=== PATIENT | female | born 1960 | race Caucasian/White ===

== ENCOUNTER 2016-06-20 04:39 | Inpatient (IN) | payer SELFPAY ==
[~2016-06-20] VITALS: Ht 160 cm; Wt 63.5 kg
[2016-06-20] VITALS (28 sets, daily range): BP systolic 110–195; BP diastolic 70–100; PULSE 69–101; RESP 17–20; TEMP 96.5–98.3; O2SAT 92–99
[~2016-06-20 04:39] MED LIST: BENZ100 PO; LOVA10TA PO; PRED20 PO; ZITH250T PO
[2016-06-20] MEDS ORDERED: SODIUM CHLOR 0.9% 1000 ML INJ 1,000 ML IV ONE (05:06)
--- NOTE | 2016-06-20 05:13 | PD ---
HPI Chief Complaint: Numbness/Tingling Time Seen by Provider: 04:59 Travel History International Travel<30 days: No Contact w/Intl Traveler<30days: No Traveled to known affect area: No History of Present Illness HPI 56-year-old female presents to the emergency department by private vehicle for evaluation of new onset numbness to the left upper lip left upper extremity and left leg. Patient states that approximately one hour prior to arrival to the emergency department patient started noticing numbness of the left face specifically in the lip left upper extremity and left leg. Patient states that this is persistent and no prior history of paresthesias affecting the left side. Patient denies any weakness of the upper or lower extremity. No facial droop. No difficulty with speech or swallowing. No visual disturbance. No balance disturbance. History of dyslipidemia has not been on medication for years. Positive tobacco use. Family history of cardiac disease. Patient denies any chest pain shortness of breath nausea vomiting referred neck jaw back shoulder arm or abdominal pain. PFSH Past Medical History Narrative Medical Arthritis anxiety depression dyslipidemia hypertension carpal tunnel release tobacco use alcohol use nursing notes reviewed Arthritis: Yes Anxiety: Yes Depression: Yes Cardiovascular Problems: No High Cholesterol: Yes Diminished Hearing: No Endocrine: No Hypertension: Yes Musculoskeletal: No Neurologic: No Psychiatric: No Respiratory: No ?: Not Menopausal: Yes : 3 Para: 3 Miscarriage: 0 : 0 Tubal Ligation: Yes Past Surgical History Body Medical Devices: METAL PLATE RIGHT FOOT Neurologic Surgery: Yes (B/L CARPAL TUNNEL) Tonsillectomy: Yes Other Surgery: Yes Social History Alcohol Use: Yes (OCCASIONAL) Tobacco Use: Yes (1 PPD) Substance Use: No Allergies-Medications (Allergen,Severity, Reaction): Coded Allergies: No Known Allergies (Verified , 06/20/16) Reported Meds & Prescriptions Reported Meds & Active Scripts Active No Active Prescriptions or Reported Medications Review of Systems Except as stated in HPI: all other systems reviewed are Neg General / Constitutional: No: Fever Eyes: No: Diploplia, Visual changes HENT: No: Headaches, Vertigo, Lightheadedness Cardiovascular: No: Chest Pain or Discomfort, Palpitations, Diaphoresis Respiratory: No: Shortness of Breath Gastrointestinal: No: Nausea, Vomiting Musculoskeletal: No: Myalgias, Arthralgias Skin: No Rash Neurologic: Positive: Paresthesia, Sensory Disturbance, No: Weakness, Dizziness, Syncope, Focal Abnormalities, Coordination Problem, Ataxia, Headache , Change in Mentation, Slurred Speech, Incontinence Psychiatric: No: Anxiety Physical Exam Narrative GENERAL: Well-developed well-nourished female in no acute distress no respiratory distress. BP: 195/98 SKIN: Warm and dry. HEAD: Atraumatic. Normocephalic. EYES: Pupils equal and round. No scleral icterus. No injection or drainage. ENT: No nasal bleeding or discharge. Mucous membranes pink and moist. NECK: Trachea midline. No JVD. CARDIOVASCULAR: Regular rate and rhythm. RESPIRATORY: No accessory muscle use. Clear to auscultation. Breath sounds equal bilaterally. GASTROINTESTINAL: Abdomen soft, non-tender, nondistended. Hepatic and splenic margins not palpable. MUSCULOSKELETAL: Extremities without clubbing, cyanosis, or edema. No obvious deformities. NEUROLOGICAL: Awake and alert. GCS 15 No obvious cranial nerve deficits. Motor grossly within normal limits. Five out of 5 muscle strength in the arms and legs. No limb ataxia. No pronator drift. Decreased sensation to light touch intact pinprick left upper extremity extending to and including the hand left lower extremity extending to and including the foot. No pronator drift. Normal speech. PSYCHIATRIC: Appropriate mood and affect; insight and judgment normal. Data Data Last Documented VS Vital Signs Date Time Temp Pulse Resp B/P Pulse Ox O2 Delivery O2 Flow Rate FiO2 06/20/16 06:15 90 18 166/78 95 Room Air 06/20/16 05:55 21 06/20/16 04:55 98.1 Orders Cath For Specimen (06/20/16 05:06) Neuro Checks Q2HX12,Q4H (06/20/16 05:06) Nursing Bedside Swallow Assess .ONCE (06/20/16 05:06) Activity Bed Rest (06/20/16 05:06) Diet Npo (06/20/16 Breakfast) Prothrombin Time / Inr (Pt) (06/20/16 05:06) Act Partial Throm Time (Ptt) (06/20/16 05:06) Complete Blood Count With Diff (06/20/16 05:06) Basic Metabolic Panel (Bmp) (06/20/16 05:06) Fibrinogen (06/20/16 05:06) Creatine Kinase (Cpk) (06/20/16 05:06) Troponin I (06/20/16 05:06) Ua Includes Microscopic (06/20/16 05:06) Drug Screen, Random Urine (06/20/16 05:06) Type And Screen (06/20/16 05:06) Ct Brain W/O Iv Contrast(Rout) (06/20/16 ) Electrocardiogram (06/20/16 ) Beta Hcg (Quant/Titer) (06/20/16 05:06) Consult Neurology (06/20/16 05:06) Sodium Chlor 0.9% 1000 Ml Inj (Ns 1000 M (06/20/16 05:06) Blood Glucose (06/20/16 05:06) Ecg Monitoring (06/20/16 05:06) Iv Access Insert/Monitor (06/20/16 05:06) NPO (06/20/16 05:06) Oximetry (06/20/16 05:06) Oxygen Administration (06/20/16 05:06) Resp Oxygen Fredy C Titrat 1-4 L (06/20/16 05:06) Nicardipine Inj (Cardene Inj) (06/20/16 05:15) (Hub Use Only)Inp Phy Cons/Ref (06/20/16 ) Aspirin (Aspirin) (06/20/16 06:15) Ondansetron Inj (Zofran Inj) (06/20/16 06:15) Admit Order (Ed Use Only) (06/20/16 ) ^ Saline Lock (06/20/16 06:15) Resp Oxygen Fredy C Titrat 1-4 L (06/20/16 ) ^ Notify Dr: Other (06/20/16 06:15) Sodium Chloride 0.9% Flush (Ns Flush) (06/20/16 09:00) Sodium Chloride 0.9% Flush (Ns Flush) (06/20/16 06:15) Admit To Inpatient (06/20/16 ) Code Status (06/20/16 06:20) Vital Signs (Adult) Q4H (06/20/16 06:20) Nih Stroke Scale - Nihss .On admission and discharge (06/20/16 06:20) Neuro Checks Q2HX12,Q4H (06/20/16 06:20) Ot Request For Service (06/20/16 06:20) Consult Pt Eval & Treat (06/20/16 06:20) Case Management Consult (06/20/16 ) Activity Bed Rest (06/20/16 06:20) Nursing Bedside Swallow Assess .ONCE (06/20/16 06:20) Scd Bilateral/Knee High MARIO.QSHIFT (06/20/16 06:20) Hemoglobin (Hgb) A1c (06/20/16 06:20) Lipid Profile (06/21/16 06:00) Mra Brain W/O Contrast (Cow) (06/20/16 ) Mri Brain W/O Contrast (06/20/16 ) Resp Oxygen Fredy C Titrat 1-4 L (06/20/16 ) ^ Hold Medication (06/20/16 06:20) Sodium Chloride 0.9% Flush (Ns Flush) (06/20/16 09:00) Sodium Chloride 0.9% Flush (Ns Flush) (06/20/16 06:30) Aspirin (Aspirin) (06/20/16 09:00) Bedside Glucose MARIO.AC&HS (06/20/16 06:20) ^ Discontinue Insulin Orders (06/20/16 06:20) Insulin Aspart Supplemtl Scale (Novolog (06/20/16 07:00) Dextrose 50% In Karol (Vial) Inj (D50w (Vi (06/20/16 06:30) Glucagon Inj (Glucagon Inj) (06/20/16 06:30) ^ Hollow Handle Knife Assembler / Telemetry (06/20/16 06:20) Scd Bilateral/Knee High MARIO.BID (06/20/16 06:20) Emanuel Bilateral/Knee High MARIO.QSHIFT (06/20/16 06:20) Inpatient Certification (06/20/16 ) Labs Laboratory Tests Test 06/20/16 06/20/16 05:15 05:25 White Blood Count 7.2 TH/MM3 Red Blood Count 4.95 MIL/MM3 Hemoglobin 14.6 GM/DL Hematocrit 42.3 % Mean Corpuscular Volume 85.5 FL Mean Corpuscular Hemoglobin 29.5 PG Mean Corpuscular Hemoglobin 34.5 % Concent Red Cell Distribution Width 13.9 % Platelet Count 202 TH/MM3 Mean Platelet Volume 8.7 FL Neutrophils (%) (Auto) 60.5 % Lymphocytes (%) (Auto) 30.6 % Monocytes (%) (Auto) 5.6 % Eosinophils (%) (Auto) 1.9 % Basophils (%) (Auto) 1.4 % Neutrophils # (Auto) 4.4 TH/MM3 Lymphocytes # (Auto) 2.2 TH/MM3 Monocytes # (Auto) 0.4 TH/MM3 Eosinophils # (Auto) 0.1 TH/MM3 Basophils # (Auto) 0.1 TH/MM3 CBC Comment DIFF FINAL Differential Comment Prothrombin Time 9.8 SEC Prothromb Time International 0.9 RATIO Ratio Activated Partial 26.3 SEC Thromboplast Time Fibrinogen 264 mg/dL Sodium Level 142 MEQ/L Potassium Level 4.0 MEQ/L Chloride Level 108 MEQ/L Carbon Dioxide Level 25.5 MEQ/L Anion Gap 9 MEQ/L Blood Urea Nitrogen 13 MG/DL Creatinine 0.57 MG/DL Estimat Glomerular Filtration 109 ML/MIN Rate Random Glucose 118 MG/DL Calcium Level 8.8 MG/DL Total Creatine Kinase 74 U/L Troponin I LESS THAN 0.02 NG/ML Human Chorionic Gonadotropin, 2 MIU/ML Quant Blood Type B POSITIVE Antibody Screen NEGATIVE Blood Bank Comment Urine Collection Type CATH Urine Color STRAW Urine Turbidity CLEAR Urine pH 6.0 Urine Specific [place] 1.006 Urine Protein NEG mg/dL Urine Glucose (UA) NEG mg/dL Urine Ketones NEG mg/dL Urine Occult Blood TRACE Urine Nitrite NEG Urine Bilirubin NEG Urine Leukocyte Esterase NEG Urine Squamous Epithelial 0-5 /hpf Cells Urine Opiates Screen NEG Urine Barbiturates Screen NEG Urine Amphetamines Screen NEG Urine Benzodiazepines Screen NEG Urine Cocaine Screen NEG Urine Cannabinoids Screen NEG MDM Medical Decision Making Medical Screen Exam Complete: Yes Emergency Medical Condition: Yes Medical Record Reviewed: Yes Interpretation(s) EKG: Sinus rhythm rate [address] elevation injury pattern or ectopy noted CT brain noncontrast per reading radiologist Dr. Law negative@5:27 AM Differential Diagnosis Paresthesias, CVA, TIA, ICH, cervical radiculopathy Narrative Course in room 12 @ 04:55 NIHSS: 1; stroke alert called @ 04:57; stat to CT discussed with Dr Trimble @ 04:[address], NIHSS: 1 @ 5:08 in room 12 @ 5:[address] Trimble who has reviewed the CT; aware numbness decreasing now only affecting the left upper lip (no change) left hand (left arm symptoms resolved) left foot ( left leg symptoms resolved); Neurologist does not recommend proceeding with thrombolytics for this patient recommends administering aspirin and aware nicardipine initiated for BP control; patient is aware that as her symptoms are improving it would not be recommended to proceed with thrombolytic agent. Patient is not desirous of proceeding with thrombolytics. is at bedside. At 5:27 AM per reading radiologist Dr. Law CT brain noncontrast negative for bleed or acute process @ 6:50 AM patient complaining of recurrent symptoms symptoms had completely resolved without any lip arm or leg paresthesias/numbness however now reports that the upper lip again is becoming numb and notes lower lip numbness as well as recurrence of left hand and left foot numbness is not affecting the forearm or upper arm and not affecting the lower leg or upper leg. Repeat neurologic exam shows no motor deficit again NIHSS:1; call placed to neurology service case discussed with now Dr. Foster who recommends patient receive heparin without bolus per CVA ischemia protocol as well as the aspirin as previously ordered by follow-up and recommends proceeding with stat MR studies. Also concurs with keeping blood pressure systolic approximate 160 mmHg. Physician Communication Physician Communication call placed to [facility] service for admission Diagnosis Primary Impression: TIA (transient ischemic attack) Qualified Code: G45.9 - Transient cerebral ischemia, unspecified type Additional Impression: HTN (hypertension) Qualified Code: I10 - Essential hypertension Admitting Information Admitting Physician Requests: Admit Scripts No Active Prescriptions or Reported Meds Zoey Arizmendi MD Jun 20, 2016 05:13
[2016-06-20] MEDS ORDERED: niCARdipine INJ 25 MG in SODIUM CHLOR 0.9% 250 ML INJ 250 ML IV SCH (05:15)
[2016-06-20 05:25] LABS: AUTOMATED NEUTROPHIL # 4.4 TH/MM3 (1.8-7.7); BASOPHIL # 0.1 TH/MM3 (0-0.2); BASOPHIL % 1.4 % (0.0-2.0); EOSINOPHIL # 0.1 TH/MM3 (0-0.4); EOSINOPHIL % 1.9 % (0.0-4.0); HEMATOCRIT 42.3 % (35.0-46.0); HEMO FLAGS DIFF FINAL; LYMPH % 30.6 % (9.0-44.0); LYMPHOCYTE # 2.2 TH/MM3 (1.0-4.8); MEAN CELL VOLUME 85.5 FL (80.0-100.0); MEAN CORPUSCULAR HEMOGLOBIN 29.5 PG (27.0-34.0); MEAN CORPUSCULAR HGB CONC 34.5 % (32.0-36.0); MONO % 5.6 % (0.0-8.0); NEUT % 60.5 % (16.0-70.0); PLATELET COUNT 202 TH/MM3 (150-450); RED BLOOD COUNT 4.95 MIL/MM3 (4.00-5.30); RED CELL DISTRIBUTION WIDTH 13.9 % (11.6-17.2); WHITE BLOOD COUNT 7.2 TH/MM3 (4.0-11.0)
[2016-06-20 05:30] LABS: CHLORIDE 108 MEQ/L (98-107); SODIUM (NA) 142 MEQ/L (136-145)
--- NOTE | 2016-06-20 05:32 | RADHPO ---
EXAM DATE/TIME: 06/20/2016 05:02 [facility] COMPARISON: No previous studies available for comparison. INDICATIONS : Stroke alert. Left sided face and arm numbness. RADIATION DOSE: 61.98 CTDIvol (mGy) This report was called by Dr. Law to Dr. Arizmendi at 527 MEDICAL HISTORY : Hypertension. SURGICAL HISTORY : Tubal ligation. ENCOUNTER: Initial ACUITY: 1 day PAIN SCALE: 0/10 LOCATION: cranial TECHNIQUE: Multiple contiguous axial images were obtained of the head. Using automated exposure control and adj ustment of the mA and/or kV according to patient size, radiation dose was kept as low as reasonably a chievable to obtain optimal diagnostic quality images. FINDINGS: CEREBRUM: The ventricles are normal for age. No evidence of midline shift, mass lesion, hemorrhage or acute in farction. No extra-axial fluid collections are seen. POSTERIOR FOSSA: The cerebellum and brainstem are intact. The 4th ventricle is midline. The cerebellopontine angle i s unremarkable. EXTRACRANIAL: The visualized portion of the orbits is intact. SKULL: The calvaria is intact. No evidence of skull fracture. CONCLUSION: No acute intracranial findings Estevan Law MD on June 20, 2016 at 5:27 Board Certified Radiologist. This report was verified electronically.
[2016-06-20 05:34] LABS: ANION GAP 9 MEQ/L (5-15); BICARBONATE 25.5 MEQ/L (21.0-32.0); BLOOD UREA NITROGEN 13 MG/DL (7-18)
[2016-06-20 05:37] LABS: APTT (PATIENT) 26.3 SEC (24.3-30.1); GLOMERULAR FILTRATION RATE 109 ML/MIN (>89); INTERNATIONAL NORMALIZED RATIO 0.9 RATIO; PROTHROMBIN TIME - PATIENT 9.8 SEC (9.8-11.6)
[2016-06-20 05:42] LABS: BETA HCG QUANT 2 MIU/ML (0-5)
[2016-06-20 05:44] LABS: CREATINE KINASE 74 U/L (26-192)
[2016-06-20 05:52] LABS: BLOOD, URINE TRACE (NEG); GLUCOSE,URINE NEG (NEG); KETONE, URINE NEG (NEG); NITRITE,URINE NEG (NEG)
[2016-06-20 05:59] LABS: BARBITURATES, URINE NEG (NEG); COCAINE, URINE NEG (NEG)
[2016-06-20 06:00] LABS: AMPHETAMINE, URINE NEG (NEG)
[2016-06-20] MEDS ORDERED: ONDANSETRON HCL 4 MG/2 ML VIAL IV PUSH ONE (06:15)
[2016-06-20] MEDS ORDERED: ASPIRIN 325 MG TAB PO ONE (06:15)
[2016-06-20] MEDS ORDERED: SODIUM CHLORIDE 0.9% FLUSH 5 ML FLUSH IVF PRN ×3 (06:15→08:30)
[2016-06-20] MEDS ORDERED: GLUCAGON 1 MG/ML VIAL IM/SQ PRN ×2 (06:30→08:30)
[2016-06-20] MEDS ORDERED: DEXTROSE 50% IN WATER 50 ML VIAL(D50) IV PUSH PRN ×2 (06:30→08:30)
[2016-06-20 06:56] LABS: METHOD OF COLLECTION CATH
[2016-06-20 06:57] LABS: SQUAMOUS EPITHELIAL CELL URINE 0-5 /hpf (0-5); URINE COLOR STRAW (YELLW/STRAW)
[2016-06-20] MEDS: INSULIN ASPART SUPPLEMENTAL SCALE SQ SCH ×4 (07:00→21:00)
[2016-06-20] MEDS ORDERED: HEPARIN-D5W INJ 250 ML IV SCH (07:00)
[2016-06-20] MEDS: SODIUM CHLOR 0.9% 1000 ML INJ 1,000 ML IV SCH ×2 (08:17→22:11)
[2016-06-20] MEDS ORDERED: LABETALOL HCL 100 MG/20 ML VIAL IV PRN (08:30)
[2016-06-20] MEDS: SODIUM CHLORIDE 0.9% FLUSH 5 ML FLUSH IVF SCH ×4 (08:30→21:00)
[2016-06-20] MEDS: ASPIRIN 325 MG TAB PO SCH (08:31)
[2016-06-20] MEDS ORDERED: SODIUM CHLORIDE 0.9% FLUSH 5 ML FLUSH IVF SCH (09:00)
--- NOTE | 2016-06-20 10:45 | MB ---
cc: ELMA LO DATE OF CONSULTATION: 06/20/2016 REASON FOR CONSULTATION: Stroke alert. HISTORY OF PRESENT ILLNESS Ms. Nagy is a 56-year-old female who presented to the emergency room at [facility] with new onset numbness in the left face, left upper extremity, left leg which began about an hour prior to arrival, she had no weakness. On presentation the NIH stroke scale was 1, a stroke alert was called. This case was discussed with Dr. Trimble who was luncheonette manager, however, her symptoms completely resolved and she was felt not to be a candidate for IV TPA, was started on aspirin and also Cardene because of hypertension. In the interim she did develop recurrent numbness, roughly an hour or so ago. I spoke with Dr. Arizmendi in reference to this, recommended starting a heparin drip because of the probability of crescendo TIAs. She had absolutely no motor deficits and it was felt that she was not a TPA candidate at this time as well due to lack of motor deficits and also the fact that she was out of the 4 and 1/2 hour window from the initial presentation of initial symptomatology. She has no previous history of stroke or TIA. In the interim since starting the IV heparin her symptoms have completely resolved and she feels back to normal. PAST MEDICAL HISTORY 1. Anxiety, depression. 2. Hyperlipidemia. 3. Hypertension. 4. Carpal tunnel release. MEDICATIONS She states she takes no medicines, no blood thinners. ALLERGIES None known. SOCIAL HISTORY She does smoke one-pack a day. Drinks alcohol occasionally. NEUROLOGIC EXAMINATION VITAL SIGNS: Blood pressure currently is about 140/70, pulse is 75 regular, respirations 16. Higher cortical functions are normal. Cranial nerves II-XII are normal in detail. Motor exam 5/5 strength of all groups. There is no drift. Fine motor skills normal. Sensory exam at this time is completely normal. Reflexes 1+ symmetric. There is no Babinski present. IMAGING STUDIES CT of the brain is normal. LABORATORY DATA White count 7200, hemoglobin 14.6, hematocrit 42%, platelet count 202,000. Sodium 142, potassium 4, chloride 108, CO2 25, BUN is 13, creatinine 0.57, glucose is 118, PT 9.8, INR 0.9, APTT 26.3. Urinalysis pH is 6, specific gravity 1.006. Tox screen negative. EKG Normal sinus rhythm. IMPRESSION Probable pure sensory TIA. RECOMMENDATIONS Continue heparin for now, will evaluate her further with MRI and MRA of the brain and also MRI of the carotids to rule out carotid stenosis, echocardiogram and lipid panel. Would recommend allowing her blood pressure to go higher, I would not treat unless she got over 200/100. Keep head of bed flat for now. MD MIRNA Martinez/JAGDEEP /8:17 AM /10:29 AM
[2016-06-20] MEDS ORDERED: INSULIN ASPART SUPPLEMENTAL SCALE SQ SCH (11:00)
--- NOTE | 2016-06-20 12:53 | RADHPO ---
EXAM DATE/TIME: 06/20/2016 11:48 [facility] COMPARISON: No previous studies available for comparison. INDICATIONS : Left sided weakness. MEDICAL HISTORY : Arthritis. SURGICAL HISTORY : Rt foot bone fusion. ENCOUNTER: Initial ACUITY: 1 day PAIN SCORE: 0/10 LOCATION: cranial Please note a normal MRA of the brain does not entirely exclude the possibility of a small aneurysm, nor the possibility of distal intracranial vessel disease. TECHNIQUE: 3D time of flight MRA was performed. Source images, multiplanar STS MIP, and 3D volume MIP reconstru ctions were reviewed. FINDINGS: There is excellent visualization of the major intracranial arteries out to the second-order branch ve ssels. There is no evidence for aneurysm, vessel truncation or stenosis, and no evidence for vascula r malformation. CONCLUSION: Negative MRA of the brain.. Oscar Alvarez MD FACR on June 20, 2016 at 12:51 Board Certified Radiologist. This report was verified electronically.
[2016-06-20] MEDS ORDERED: GADODIAMIDE PF 287 MG/ML 20 ML VIAL (for RAD MRI) IV ONE (13:01)
--- NOTE | 2016-06-20 13:10 | RADHPO ---
EXAM DATE/TIME: 06/20/2016 11:48 [facility] COMPARISON: No previous studies available for comparison. INDICATIONS: Left sided weakness. MEDICAL HISTORY: Arthritis. SURGICAL HISTORY: Rt foot bone fusion ENCOUNTER: Initial ACUITY: 1 day PAIN SCORE: 0/10 LOCATION: Cranial TECHNIQUE: Multiplanar, multisequence MRI of the brain was performed without contrast. 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 This has the appearance of a congenital process. Fourth ventricle is midline. The supratentorial brain is unremarkable. There is no parenchymal hemorrhage, mass effect or acute i nfarction. There are no extraaxial fluid collections appreciated. There is normal helton white conjunction. Cerebellar tonsils are in normal anatomic position. CONCLUSION: Negative MRI of the brain for an acute process. Oscar Alvarez MD FACR on June 20, 2016 at 12:48 Board Certified Radiologist. This report was verified electronically.
--- NOTE | 2016-06-20 13:29 | HHI.HP ---
[facility] Elizabeth Hobson MD Admission Diagnosis TIA; HTN Diagnoses: Chief Complaint: Numbness and tingling Travel History International Travel<30 Days: No Contact w/Intl Traveler <30 Da: No Traveled to Known Affected Are: No History of Present Illness Patient is a 56-year-old female with minimal past history came to the hospital after acute onset of numbness and tingling in her lip, and left leg. No facial droop, No slurred speecStrong family history of DM and HTN, but no personal history. She has a complete resolution of symptoms at this time. Imaging is normal at this time. Review of Systems Constitutional: DENIES: Diaphoretic episodes, Fatigue, Fever, Weight gain, Weight loss, Chills, Dizziness, Change in appetite, Night Sweats Endocrine: DENIES: Abnorml menstrual pattern, Heat/cold intolerance, Polydipsia , Polyuria, Polyphagia Eyes: DENIES: Blurred vision, Diplopia, Eye inflammation, Eye pain, Vision loss , Photosensitivity, Double Vision Ears, nose, mouth, throat: DENIES: Tinnitus, Hearing loss, Vertigo, Nasal discharge, Oral lesions, Throat pain, Hoarseness, Ear Pain, Running Nose, Epistaxis, Sinus Pain, Toothache, Odynophagia Respiratory: DENIES: Apneas, Cough, Snoring, Wheezing, Hemoptysis, Sputum production, Shortness of breath Cardiovascular: DENIES: Chest pain, Palpitations, Syncope, Dyspnea on Exertion , PND, Lower Extremity Edema, Orthopnea, Claudication Gastrointestinal: DENIES: Abdominal pain, Black stools, Bloody stools, Constipation, Diarrhea, Nausea, Vomiting, Difficulty Swallowing, Anorexia Genitourinary: DENIES: Abnormal vaginal bleeding, Dysmenorrhea, Dyspareunia, Sexual dysfunction, Urinary frequency, Urinary incontinence, Urgency, Hematuria , Dysuria, Nocturia, Vaginal discharge Musculoskeletal: DENIES: Joint pain, Muscle aches, Stiffness, Joint Swelling, Back pain, Neck pain Integumentary: DENIES: Abnormal pigmentation, Pruritus, Rash, Nail changes, Breast masses, Breast skin changes, Nipple discharge Hematologic/lymphatic: DENIES: Bruising, Lymphadenopathy Immunologic/allergic: DENIES: Eczema, Urticaria Neurologic: COMPLAINS OF: Paresthesias, DENIES: Abnormal gait, Headache, Localized weakness, Seizures, Speech Problems, Tremor, Poor Balance Psychiatric: DENIES: Anxiety, Confusion, Mood changes, Depression, Hallucinations, Agitation, Suicidal Ideation, Homicidal Ideation, Delusions Past Family Social History Past Medical History Denies Past Surgical History Carpal tunnel Right foot Reported Medications Reviewed and the medical record Allergies: Coded Allergies: No Known Allergies (Verified , 06/20/16) Active Ordered Medications Reviewed in the medical record Family History Mother in her 80s with congestive heart application. 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 [employer] Physical Exam Vital Signs Vital Signs Date Time Temp Pulse Resp B/P Pulse Ox O2 Delivery O2 Flow Rate FiO2 06/20/16 12:25 97.8 86 17 132/76 96 06/20/16 10:45 98.0 86 17 140/80 99 06/20/16 08:36 82 17 147/82 97 Nasal Cannula 2 06/20/16 08:22 110/70 06/20/16 08:04 144/81 06/20/16 07:54 82 17 131/77 97 2 06/20/16 07:45 87 17 124/80 96 Nasal Cannula 2 06/20/16 07:34 81 17 138/79 97 Nasal Cannula 2 06/20/16 07:25 93 17 132/78 95 Nasal Cannula 2 06/20/16 07:10 95 Room Air 06/20/16 07:10 98.3 101 17 152/87 97 Nasal Cannula 2 06/20/16 07:10 97 Nasal Cannula 2 06/20/16 06:45 97 18 165/87 95 Room Air 06/20/16 06:30 89 18 147/79 95 Room Air 06/20/16 06:15 90 18 166/78 95 Room Air 06/20/16 06:10 95 18 153/82 96 06/20/16 06:05 82 18 145/83 96 Room Air 06/20/16 06:00 89 18 157/87 96 Room Air 06/20/16 05:55 88 18 162/86 96 Room Air 06/20/16 05:55 96 21 06/20/16 05:47 94 18 175/98 95 Room Air 06/20/16 05:42 84 18 168/92 96 Room Air 06/20/16 05:37 91 18 166/91 96 Room Air 06/20/16 05:30 80 18 185/100 99 Room Air 06/20/16 05:30 18 99 Room Air 06/20/16 05:03 97 21 06/20/16 04:55 98.1 89 18 195/98 97 06/20/16 04:50 99 Room Air 06/20/16 04:50 99 Room Air Physical Exam GENERAL: This is a well-nourished, well-developed patient, in no apparent distress. SKIN: No rashes, ecchymoses or lesions. Cool and dry. HEAD: Atraumatic. Normocephalic. No temporal or scalp tenderness. EYES: Pupils equal round and reactive. Extraocular motions intact. No scleral icterus. No injection or drainage. ENT: Nose without bleeding, purulent drainage or septal hematoma. Throat without erythema, tonsillar hypertrophy or exudate. Uvula midline. Airway patent. NECK: Trachea midline. No JVD or lymphadenopathy. Supple, nontender, no meningeal signs. CARDIOVASCULAR: Regular rate and rhythm without murmurs, gallops, or rubs. RESPIRATORY: Clear to auscultation. Breath sounds equal bilaterally. No wheezes , rales, or rhonchi. GASTROINTESTINAL: Abdomen soft, non-tender, nondistended. No hepato-splenomegaly , or palpable masses. No guarding. MUSCULOSKELETAL: Extremities without clubbing, cyanosis, or edema. No joint tenderness, effusion, or edema noted. No calf tenderness. Negative Homans sign bilaterally. NEUROLOGICAL: Awake and alert. Cranial nerves II through XII intact. Motor and sensory grossly within normal limits. Five out of 5 muscle strength in all muscle groups. Normal speech. Laboratory Laboratory Tests Test 06/20/16 06/20/16 05:15 05:25 White Blood Count 7.2 Red Blood Count 4.95 Hemoglobin 14.6 Hematocrit 42.3 Mean Corpuscular Volume 85.5 Mean Corpuscular Hemoglobin 29.5 Mean Corpuscular Hemoglobin 34.5 Concent Red Cell Distribution Width 13.9 Platelet Count 202 Mean Platelet Volume 8.7 Neutrophils (%) (Auto) 60.5 Lymphocytes (%) (Auto) 30.6 Monocytes (%) (Auto) 5.6 Eosinophils (%) (Auto) 1.9 Basophils (%) (Auto) 1.4 Neutrophils # (Auto) 4.4 Lymphocytes # (Auto) 2.2 Monocytes # (Auto) 0.4 Eosinophils # (Auto) 0.1 Basophils # (Auto) 0.1 CBC Comment DIFF FINAL Differential Comment Prothrombin Time 9.8 Prothromb Time International 0.9 Ratio Activated Partial 26.3 Thromboplast Time Fibrinogen 264 Sodium Level 142 Potassium Level 4.0 Chloride Level 108 Carbon Dioxide Level 25.5 Anion Gap 9 Blood Urea Nitrogen 13 Creatinine 0.57 Estimat Glomerular Filtration 109 Rate Random Glucose 118 Calcium Level 8.8 Total Creatine Kinase 74 Troponin I LESS THAN 0.02 Human Chorionic Gonadotropin, 2 Quant Blood Type B POSITIVE Antibody Screen NEGATIVE Blood Bank Comment Urine Collection Type CATH Urine Color STRAW Urine Turbidity CLEAR Urine pH 6.0 Urine Specific [place] 1.006 Urine Protein NEG Urine Glucose (UA) NEG Urine Ketones NEG Urine Occult Blood TRACE Urine Nitrite NEG Urine Bilirubin NEG Urine Leukocyte Esterase NEG Urine Squamous Epithelial 0-5 Cells Urine Opiates Screen NEG Urine Barbiturates Screen NEG Urine Amphetamines Screen NEG Urine Benzodiazepines Screen NEG Urine Cocaine Screen NEG Urine Cannabinoids Screen NEG Result Diagram: 06/20/16 0515 06/20/16 0515 Imaging Last Impressions Head Magnetic Resonance Angiography 06/20/16 0000 Signed Impressions: Service Date/Time: Monday, June 20, 2016 11:48 - CONCLUSION: Negative MRA of the brain.. Oscar Alvarez MD FACR Head CT 06/20/16 0000 Signed Impressions: Service Date/Time: Monday, June 20, 2016 05:02 - CONCLUSION: No acute intracranial findings Estevan Law MD Assessment and Plan Problem List: (1) TIA (transient ischemic attack) ICD Code: G45.9 Status: Acute Plan: Etiology unclear at this time with her acute neurological symptoms. They are resolving. May be cervical radiculopathy? Continue to follow with neurology. MRI/MRI unremarkable at this time (2) HTN (hypertension) ICD Code: I10 Status: Acute Plan: Continue to follow with liberal blood pressures due to possible stroke. Patient has strong family history of risk factors for blood pressure issues. Discussed with patient and family Assessment and Plan if neg eval likely dc home in am Code Status full code Discussed Condition With patient, RN Physician Certification 2 Midnight Certification Type: Admission for Inpatient Services Order for Inpatient Services The services are ordered in accordance with Medicare regulations or non- Medicare payer requirements, as applicable. In the case of services not specified as inpatient-only, they are appropriately provided as inpatient services in accordance with the 2-midnight benchmark. Estimated LOS (days): 2 2 days is the estimated time the patient will need to remain in the hospital, assuming treatment plan goals are met and no additional complications. Post-Hospital Plan: Home Problem Qualifiers (1) TIA (transient ischemic attack): Qualified Code: G45.9 - Transient cerebral ischemia, unspecified type (2) HTN (hypertension): Qualified Code: I10 - Essential hypertension Niya Sánchez MD Jun 20, 2016 13:29
--- NOTE | 2016-06-20 13:42 | RADHPO ---
EXAM DATE/TIME: 06/20/2016 11:48 [facility] COMPARISON: No previous studies available for comparison. INDICATIONS : Left sided weakness. CONTRAST: 20 cc Omniscan (gadodiamide) IV MEDICAL HISTORY : Arthritis. SURGICAL HISTORY : Rt foot bone fusion ENCOUNTER: Initial ACUITY: 1 day PAIN SCORE: 0/10 LOCATION: cranial Percent stenosis is calculated using the diameter of the stenotic region over the diameter of the nor mal distal internal carotid artery. TECHNIQUE: Bolus infused MRA of the extracranial circulation was performed using a neurovascular coil. Post pro cessing was performed including rotationg subvolume maximum intensity projections of each carotid art annia, rotating full volume maximum intensity projections of both carotid arteries, sagittal and kaufman l sliding thin slab reformations of each carotid artery, and left oblique sliding thin slab reformati on through the aortic arch to include the origin of the arch branch vessels. FINDINGS: AORTIC ARCH: There is a three vessel origin of the great vessels from the aorta. No evidence of ostial narrowing. RIGHT CAROTID: The common carotid artery is intact. The carotid bulb has a normal configuration without ulceration or narrowing. The internal carotid artery lumen is smooth without stenosis. The external carotid ar subhash is intact. LEFT CAROTID: The common carotid artery is intact. The carotid bulb has a normal configuration without ulceration or narrowing. The internal carotid artery lumen is smooth without stenosis. The external carotid ar subhash is intact. VERTEBRALS: The vertebral arteries have a symmetric diameter. No stenotic lesions are seen. CONCLUSION: Negative MRA of the carotids for hemodynamically significant stenosis. Oscar Alvarez MD FACR on June 20, 2016 at 13:39 Board Certified Radiologist. This report was verified electronically.
[2016-06-20 14:34] LABS: APTT (PATIENT) 27.8 SEC (24.3-30.1)
[2016-06-20 16:23] LABS: HEMOGLOBIN A1a 1.3 %; HEMOGLOBIN A1b 0.8 %; HEMOGLOBIN Ao 85.2 %; HEMOGLOBIN LA1C 2.2 %; HEMOGLOBIN P3 3.7 %
--- NOTE | 2016-06-20 19:23 | EKG ---
Date Performed: 06/20/2016 Time Performed: 05:08:50 PTAGE: 56 years EKG: Sinus rhythm Poor R wave progression - probable normal variant Borderline ECG PREVIOUS TRACING : 05/26/2011 15.17 DOCTOR: Deniz Bruce Interpretating Date/Time 06/20/2016 19:19:30
[2016-06-21] VITALS: BP 156/101; PULSE 80; RESP 20; TEMP 97.9; O2SAT 95
[2016-06-21 04:00] VITALS: BP 170/94; PULSE 75; RESP 20; TEMP 97.8; O2SAT 94
[2016-06-21] MEDS: INSULIN ASPART SUPPLEMENTAL SCALE SQ SCH (06:28)
[2016-06-21 08:00] VITALS: BP 154/92; PULSE 72; RESP 18; TEMP 98.3; O2SAT 96
[2016-06-21] MEDS: ASPIRIN 325 MG TAB PO SCH (08:18)
[2016-06-21] MEDS: SODIUM CHLORIDE 0.9% FLUSH 5 ML FLUSH IVF SCH ×2 (08:18)
[2016-06-21] MEDS ORDERED: amLODIPine BESYLATE 5 MG TAB PO SCH (09:00)
[2016-06-21 10:04] LABS: HDL CHOLESTEROL 69.4 MG/DL (40.0-60.0)
[2016-06-21] MEDS ORDERED: AMLO5 PO (10:58)
--- NOTE | 2016-06-21 10:58 | HHI.DCPOC ---
Discharge Care Plan Diagnosis: (1) HTN (hypertension) (2) TIA (transient ischemic attack) Goals to Promote Your Health * To prevent worsening of your condition and complications * To maintain your health at the optimal level Directions to Meet Your Goals Take your medications as prescribed Follow your dietary instruction Follow activity as directed Keep your appointments as scheduled Take your immunizations and boosters as scheduled If your symptoms worsen call your PCP, if no PCP go to Urgent Care Center or Emergency Room Smoking is Dangerous to Your Health. Avoid second hand smoke Call the 24-hour hour crisis hotline for domestic abuse at Niya Sánchez MD Jun 21, 2016 10:58
--- NOTE | 2016-06-21 11:03 | HHI.DS ---
Discharge Summary Admission Date Jun 20, 2016 at 06:23 Discharge Date: Jun 21, 2016 Admitting Diagnosis TIA; HTN (1) TIA (transient ischemic attack) ICD Code: G45.9 (2) HTN (hypertension) ICD Code: I10 Procedures none Brief History - From Admission Patient is a 56-year-old female with minimal past history came to the hospital after acute onset of numbness and tingling in her lip, and left leg. No facial droop, No slurred speecStrong family history of DM and HTN, but no personal history. She has a complete resolution of symptoms at this time. Imaging is normal at this time. CBC/BMP: 06/20/16 0515 06/20/16 0515 Significant Findings Laboratory Tests Test 06/20/16 06/20/16 06/21/16 05:15 05:25 05:30 Chloride Level 108 MEQ/L (98-107) Random Glucose 118 MG/DL (74-106) Troponin I LESS THAN 0.02 NG/ML (0.02-0.05) Urine Occult Blood TRACE (NEG) Cholesterol Level 222 MG/DL (120-200) LDL Cholesterol 134 MG/DL (0-99) HDL Cholesterol 69.4 MG/DL (40.0-60.0) Imaging Last Impressions Neck Magnetic Resonance Angiography 06/20/16 0000 Signed Impressions: Service Date/Time: Monday, June 20, 2016 11:48 - CONCLUSION: Negative MRA of the carotids for hemodynamically significant stenosis. Oscar Alvarez MD FACR Head Magnetic Resonance Angiography 06/20/16 0000 Signed Impressions: Service Date/Time: Monday, June 20, 2016 11:48 - CONCLUSION: Negative MRA of the brain.. Oscar Alvarez MD FACR Head CT 06/20/16 0000 Signed Impressions: Service Date/Time: Monday, June 20, 2016 05:02 - CONCLUSION: No acute intracranial findings Estevan Law MD Brain MRI 06/20/16 0000 Signed Impressions: Service Date/Time: Monday, June 20, 2016 11:48 - CONCLUSION: Negative MRI of the brain for an acute process. Oscar Alvarez MD FACR PE at Discharge GENERAL: This is a well-nourished, well-developed patient, in no apparent distress. CARDIOVASCULAR: Regular rate and rhythm without murmurs, gallops, or rubs. RESPIRATORY: Clear to auscultation. Breath sounds equal bilaterally. No wheezes , rales, or rhonchi. GASTROINTESTINAL: Abdomen soft, non-tender, nondistended. Normal active bowel sounds MUSCULOSKELETAL: Extremities without clubbing, cyanosis, or edema. NEURO: Alert & Oriented x4 to person, place, time, situation. Moves all ext x4 Hospital Course Event is a very pleasant 56-year-old female with no medical history but who was hypertensive on arrival. Patient was seen and treated for acute neurological symptoms worrisome for stroke. She was discharged home after images were unremarkable and the patient did well. She was started on blood pressure medications educated regarding tobaccoism and the need for appropriate medical follow-up. She is seen by neurology in consultation. Her symptoms resolved. Images were negative Pt Condition on Discharge: Good Discharge Disposition: Discharge Home Discharge Time: > 30 minutes Discharge Instructions DIET: Follow Instructions for: Heart Healthy Diet Activities you can perform: Regular-No Restrictions Follow up Referrals: PCP Follow-up New Medications: Amlodipine (Norvasc) 5 Mg Tab 5 MG PO DAILY Blood Pressure Management Days 30 TAB Niya Sánchez MD Jun 21, 2016 11:03
--- NOTE | 2016-06-21 21:00 | EC ---
Study Study Date:06/21/2016 STUDY CONCLUSIONS SUMMARY - Left ventricle: The cavity size was normal. Wall thickness was normal. Systolic function was normal. The estimated ejection fraction was in the range of 50% to 55%. Wall motion was normal; there were no regional wall motion abnormalities. - Mitral valve: Mild regurgitation. - Tricuspid valve: Mild regurgitation. - Pulmonary arteries: PA peak pressure: 33mm Hg (S). Impressions: No cardiac source of emboli was indentified. If LV function is below 40, please consider prescribing an ACEI or ARB or document rationale for non-use. PROCEDURE DATA STUDY STATUS: Elective. Procedure: Transthoracic echocardiography. Image quality was good. Scanning was performed from the parasternal, apical, and subcostal acoustic windows. Study completion: The patient tolerated the procedure well. Transthoracic echocardiography. M-mode, complete 2D, complete spectral Doppler, and color Doppler. Patient status: Inpatient. CARDIAC ANATOMY LEFT VENTRICLE: The cavity size was normal. Wall thickness was normal. Systolic function was normal. The estimated ejection fraction was in the range of 50% to 55%. Wall motion was normal; there were no regional wall motion abnormalities. AORTIC VALVE: Trileaflet; normal thickness leaflets. Doppler: Transvalvular velocity was within the normal range. There was no stenosis. No regurgitation. AORTA: Aortic root: The aortic root was normal in size. MITRAL VALVE: Structurally normal valve. Doppler: Transvalvular velocity was within the normal range. There was no evidence for stenosis. Mild regurgitation. LEFT ATRIUM: The atrium was normal in size. RIGHT VENTRICLE: The cavity size was normal. Wall thickness was normal. PULMONIC VALVE: Doppler: Transvalvular velocity was within the normal range. There was no evidence for stenosis. No regurgitation. TRICUSPID VALVE: Structurally normal valve. Doppler: Transvalvular velocity was within the normal range. Mild regurgitation. PULMONARY ARTERY: The main pulmonary artery was normal-sized. Systolic pressure was within the normal range. RIGHT ATRIUM: The atrium was normal in size. PERICARDIUM: There was no pericardial effusion. SYSTEMIC VEINS: Inferior vena cava: The vessel was normal in size. BASIC MEASUREMENTS ADULT Normal Left ventricle LV internal dimension, ED, chordal level, *38.8 mm 43-52 PLAX LV internal dimension, ES, chordal level, 29.9 mm 23-38 PLAX Fractional shortening, chordal level, PLAX *23 % >29 LV posterior wall thickness, ED 11.4 mm IVS/LVPW ratio, ED 0.84 <1.3 Ventricular septum Septal thickness, ED 9.52 mm Aortic valve Leaflet separation 22 mm 15-26 Right ventricle RV internal dimension, ED, PLAX 22.6 mm 19-38 BASIC MEASUREMENTS ADULT Normal Aortic valve Leaflet separation 22 mm 15-26 Aorta Root diameter, ED 30 mm 20-37 Left atrium Anterior-posterior dimension, ES 33 mm 19-40 LA/aortic root ratio 1.1 DOPPLER MEASUREMENTS ADULT Normal Main pulmonary artery Pressure, S *33 mm Hg =30 Tricuspid valve Regurgitant peak velocity 238 cm/s Peak RV-RA gradient, S 23 mm Hg Maximal regurgitant velocity 238 cm/s Systemic veins Estimated CVP 10 mm Hg Right ventricle RV pressure, S *33 mm Hg <30 LEGEND: Mean values are shown as u=mean value. Asterisk (*) olguin values outside specified normal range. Prepared and signed by Deniz Bruce [id number]
== END 2016-06-21 11:41 | disposition home or self-care (01) | DRG 69 ==
LOC: PHED 04:39 → PHEDA 06:23 → PH3B 09:20
PROVIDERS: ADMIT Hospitalist; ATTEND Hospitalist
DX: G45.9 Transient cerebral ischemic attack, unspecified (principal); I10 Essential (primary) hypertension; F17.210 Nicotine dependence, cigarettes, uncomplicated; E78.00 Pure hypercholesterolemia, unspecified; M19.90 Unspecified osteoarthritis, unspecified site; E78.5 Hyperlipidemia, unspecified; Z82.49 Family history of ischemic heart disease and other diseases of the circulatory system
CPT/HCPCS: 70450; 70544; 70548; 70551; 80048; 80061; 80307; 81001; 82550; 82948; 83036; 84484; 84702; 85025; 85384; 85610; 85730; 86850; 86900; 86901; 93005; 93306; 96365; 96375; A9579; J1644; J2405; J7030; J7050; P9612